=== PATIENT | female | born 1975 | race African-American/Black ===

== ENCOUNTER → 2017-01-06 | Outpatient (CLI) | payer MEDICAID ==
[~2017-01-06] VITALS: Ht 167.6 cm; Wt 99.8 kg
[~2017-01-06] MED LIST: ACETAMINOPHEN WITH CODEINE 300/30MG TABLET PO ONE; ALBU18HF2; LEVOFLOXACIN; Q-TUSSIN; Q-VAR
[2017-01-06 11:28] LABS: CSF APPEARANCE CLEAR, COLORLESS (CLEAR)
[2017-01-06 11:29] LABS: GLUCOSE CSF 53 mg/dL (41-75)
[2017-01-06 12:05] VITALS: BP 132/80
[2017-01-06 12:29] LABS: CSF WHITE BLOOD CELL 0 /cu mm (0-10)
[2017-01-10 13:42] LABS: *IGG QUANT CSF 1.5 mg/dL (0.0-8.6)
== END | disposition home or self-care (01) ==
LOC: RAD 08:51
PROVIDERS: ATTEND Psychiatry & Neurology Neurology
PROC: 0S903ZX Drainage of Lumbar Vertebral Joint, Percutaneous Approach, Diagnostic (ICD-10-PCS; 2017-01-06)
PROC: 009U3ZX Drainage of Spinal Canal, Percutaneous Approach, Diagnostic (ICD-10-PCS; principal; 2017-01-06 08:30)
DX: G35 Multiple sclerosis (principal)
CPT/HCPCS: 62270; 77003; 82040; 82042; 82784; 82945; 83873; 83916; 84157; 89050

== ENCOUNTER 2017-10-12 20:10 | Emergency (ER) | payer MEDICAID ==
[~2017-10-12] VITALS: Ht 167.6 cm; Wt 86.0 kg
[~2017-10-12 20:10] MED LIST changes: -ACETAMINOPHEN WITH CODEINE 300/30MG TABLET PO ONE
[2017-10-13] MEDS: KETOROLAC 60MG/2ML VIAL IM ONE (01:45)
[2017-10-13] MEDS: CYCLOBENZAPRINE 10MG TABLET PO ONE (01:45)
[2017-10-13 04:20] VITALS: BP 135/75
== END 2017-10-13 04:20 | disposition home or self-care (01) ==
LOC: ER 20:21
DX: S16.1XXA Strain of muscle, fascia and tendon at neck level, initial encounter (principal); M25.522 Pain in left elbow; M79.642 Pain in left hand; M79.632 Pain in left forearm; J45.909 Unspecified asthma, uncomplicated; G89.29 Other chronic pain; M54.9 Dorsalgia, unspecified; Z88.5 Allergy status to narcotic agent; Z88.6 Allergy status to analgesic agent; Z88.8 Allergy status to other drugs, medicaments and biological substances; V43.52XA Car driver injured in collision with other type car in traffic accident, initial encounter; Y93.89 Activity, other specified; Y92.89 Other specified places as the place of occurrence of the external cause; Y99.8 Other external cause status
CPT/HCPCS: 73070; 73090; 73130; 81025; 96372; 99284; J1885; Z7610

== ENCOUNTER 2018-04-01 10:05 | Emergency (ER) | payer MEDICAID ==
[~2018-04-01] VITALS: Ht 167.6 cm; Wt 110.0 kg
[2018-04-01] MEDS ORDERED: HYDROCODONE/ACETAMINOPHEN 5/325MG TABLET PO ONE (12:30)
[2018-04-01] MEDS ORDERED: ACETAMINOPHEN WITH CODEINE 300/30MG TABLET PO ONE (13:45)
[2018-04-01 15:32] VITALS: BP 127/82
== END 2018-04-01 15:33 | disposition home or self-care (01) ==
LOC: ER 10:05
DX: S93.402A Sprain of unspecified ligament of left ankle, initial encounter (principal); S63.502A Unspecified sprain of left wrist, initial encounter; M25.512 Pain in left shoulder; M25.552 Pain in left hip; R03.0 Elevated blood-pressure reading, without diagnosis of hypertension; W10.8XXA Fall (on) (from) other stairs and steps, initial encounter; Y93.01 Activity, walking, marching and hiking; Y92.22 Religious institution as the place of occurrence of the external cause
CPT/HCPCS: 73030; 73110; 73502; 73610; 81025; 99285

== ENCOUNTER 2018-06-11 18:33 | Emergency (ER) | payer MEDICAID ==
[~2018-06-11] VITALS: Ht 167.6 cm; Wt 103.0 kg
[2018-06-11] MEDS ORDERED: HYDROCODONE/ACETAMINOPHEN 10/325MG TABLET PO ONE (22:30)
[2018-06-11] MEDS ORDERED: LIDOCAINE/EPINEPHR/TETRACAINE 3ML TP ONE (22:30)
[2018-06-11] MEDS ORDERED: LIDOCAINE 1%/EPI 1:100,000 10 ML VIAL IJ ONE (22:30)
[2018-06-11] MEDS ORDERED: BACITRACIN ZINC OINT UDPKT TOP ONE (22:30)
[2018-06-12 00:02] VITALS: BP 145/79
== END 2018-06-12 00:34 | disposition home or self-care (01) ==
LOC: ER 18:33
DX: L02.411 Cutaneous abscess of right axilla (principal); R03.0 Elevated blood-pressure reading, without diagnosis of hypertension
CPT/HCPCS: 10060; 99284; J3490

== ENCOUNTER 2018-06-14 06:28 | Emergency (ER) | payer MEDICAID ==
[~2018-06-14] VITALS: Ht 167.6 cm; Wt 103.0 kg
[2018-06-14 07:47] VITALS: BP 118/74
== END 2018-06-14 08:14 | disposition home or self-care (01) ==
LOC: ER 06:28
DX: Z48.01 Encounter for change or removal of surgical wound dressing (principal); Z88.6 Allergy status to analgesic agent; Z88.8 Allergy status to other drugs, medicaments and biological substances
CPT/HCPCS: 99282

== ENCOUNTER 2018-08-09 21:48 | Emergency (ER) | payer MEDICAID ==
[~2018-08-09] VITALS: Ht 167.6 cm; Wt 107.0 kg
[2018-08-10] MEDS ORDERED: BACITRACIN ZINC OINT UDPKT TOP ONE (00:15)
[2018-08-10] MEDS ORDERED: LIDOCAINE HCL/PF 1% 10 MG/ML 5ML VIAL IJ ONE (00:15)
[2018-08-10 01:16] LABS: BASOPHILS % 0.9 % (0.0-2.0); EOSINOPHILS % 1.5 % (0.0-5.0); HEMATOCRIT. 35.2 % (36.0-48.0); HEMOGLOBIN. 11.6 g/dL (12.0-16.0); LYMPHOCYTES % 37.6 % (20.0-50.0); MEAN CORPUSCULAR HEMOGLOBIN 28.1 pg (28.0-32.0); MEAN CORPUSCULAR VOLUME 85.4 fL (81.0-99.0); MEAN PLATELET VOLUME 7.4 fl (7.4-10.4); MONOCYTES % 9.8 % (2.0-8.0); NEUTROPHILS % 50.2 % (40.0-76.0); PLATELET 344 x1000/uL (130-400); RED BLOOD CELL COUNT 4.11 mill/uL (4.2-5.4); RED CELL DISTRIBUTION WIDTH 13.6 % (11.6-14.6)
[2018-08-10 01:23] LABS: CHLORIDE 104 mEq/L (98-107)
[2018-08-10] MEDS ORDERED: TRAMADOL 50MG TABLET PO ONE (02:00)
[2018-08-10 05:21] VITALS: BP 136/88
== END 2018-08-10 05:23 | disposition home or self-care (01) ==
LOC: ER 21:48
DX: L73.2 Hidradenitis suppurativa (principal); R07.9 Chest pain, unspecified; J45.909 Unspecified asthma, uncomplicated; G89.29 Other chronic pain; M54.9 Dorsalgia, unspecified; Z90.49 Acquired absence of other specified parts of digestive tract; Z79.899 Other long term (current) drug therapy; Z88.8 Allergy status to other drugs, medicaments and biological substances; Z88.6 Allergy status to analgesic agent
CPT/HCPCS: 10060; 36415; 71045; 80053; 83880; 84484; 85025; 93005; 99285; J3490

== ENCOUNTER 2019-12-15 14:21 | Emergency (ER) | payer MEDICAID, OTHER ==
[~2019-12-15] VITALS: Ht 167.6 cm; Wt 103.0 kg
[2019-12-15 14:39] VITALS: BP 167/90
[2019-12-15] MEDS ORDERED: TETANUS, DIPHTHERIA, PERTUSSIS VAC/PF 0.5ML (>7YR OLD) IM ONE (16:00)
[2019-12-15] MEDS ORDERED: BACITRACIN ZINC OINT UDPKT TOP ONE (16:00)
[2019-12-15] MEDS ORDERED: LIDOCAINE HCL/PF 1% 10 MG/ML 5ML VIAL IJ ONE (16:00)
[2019-12-15] MEDS ORDERED: LIDOCAINE HCL 1% 20ML VIAL (Pyxis) INJ INFIL ONE (18:30)
[2019-12-15] MEDS ORDERED: CEPHALEXIN 250MG CAPSULE PO ONE (19:00)
[2019-12-15] MEDS ORDERED: ACETAMINOPHEN WITH CODEINE 300/30MG TABLET PO ONE (19:00)
== END 2019-12-15 19:51 | disposition home or self-care (01) ==
LOC: ER 14:48
DX: S61.112A Laceration without foreign body of left thumb with damage to nail, initial encounter (principal); W31.89XA Contact with other specified machinery, initial encounter; Y93.89 Activity, other specified; Y92.018 Other place in single-family (private) house as the place of occurrence of the external cause; Z23 Encounter for immunization
CPT/HCPCS: 12001; 73130; 90471; 90715; 99284; J3490

== ENCOUNTER 2019-12-17 09:28 | Emergency (ER) | payer OTHER ==
[~2019-12-17] VITALS: Ht 167.6 cm; Wt 103.4 kg
[2019-12-17 09:40] VITALS: BP 149/93
[2019-12-17] MEDS ORDERED: IBUPROFEN 600MG TABLET PO ONE (10:30)
== END 2019-12-17 11:02 | disposition home or self-care (01) ==
LOC: ER 09:28
DX: S51.812D Laceration without foreign body of left forearm, subsequent encounter (principal); J45.909 Unspecified asthma, uncomplicated; Z88.6 Allergy status to analgesic agent; Z88.8 Allergy status to other drugs, medicaments and biological substances; X58.XXXD Exposure to other specified factors, subsequent encounter
CPT/HCPCS: 99282